=== PATIENT | male | born 1945 | race Two or more races ===

== ENCOUNTER 2022-05-13 07:37 | Inpatient (IN) | payer OTHER ==
[~2022-05-13] VITALS: Ht 188 cm; Wt 106.8 kg
[~2022-05-13 07:37] MED LIST: FINA1TAB10 OR; LISI-275 PO; SIMV10TA84 PO; TAM04C PO; WARF5TAB71 PO
[2022-05-13] MEDS ORDERED: ACETAMINOPHEN IV 1000 MG/100ML (10MG/ML) IV ONE (07:45)
[2022-05-13] MEDS ORDERED: PREGABALIN CAPSULE 75 MG CAP PO ONE (07:45)
[2022-05-13] MEDS ORDERED: ceFAZolin 1GM/50ML 100 ML IV ONE (07:48)
[2022-05-13] MEDS ORDERED: ACETAMINOPHEN IV 100 ML IV ONE (07:48)
[2022-05-13 08:55] LABS: INR 1.13 (0.9-1.15); Partial Thromboplastin Time 31.3 sec (24.6-33.4)
[2022-05-13] MEDS ORDERED: BUPIVACAINE 0.25% INJ 50ML VIAL ONE ×2 (10:23→10:28)
[2022-05-13] MEDS ORDERED: TRANEXAMIC ACID 10 ML ONE ×2 (10:25→10:28)
[2022-05-13] MEDS ORDERED: KETOROLAC TROMETH 60MG/2ML VIAL ONE (10:26)
[2022-05-13] MEDS ORDERED: KETOROLAC TROMETH 30 MG/ML 1ML VIAL ONE ×2 (10:26→11:43)
[2022-05-13] MEDS ORDERED: MORPHINE SULF PF 5 MG/10 ML VIAL ONE (10:26)
[2022-05-13] MEDS ORDERED: VANCOMYCIN HCL 1000 MG VL ONE (10:27)
[2022-05-13] MEDS ORDERED: ONDANSETRON HCL 4 MG/2 ML VIAL ONE (11:42)
[2022-05-13] MEDS ORDERED: LIDOCAINE 1% (LOCAL ANESTH.) PF 5ml SDV ONE (11:42)
[2022-05-13] MEDS ORDERED: GLYCOPYRROLATE 0.2 MG/ML 1ML VIAL ONE (11:42)
[2022-05-13] MEDS ORDERED: DexAMETHasone SOD PHOS 10MG/1ML VIAL INJ ONE (11:43)
[2022-05-13] MEDS ORDERED: PROPOFOL 10 MG/ML 20 ML IV ONE (11:43)
[2022-05-13] MEDS ORDERED: HYDROmorphone HCL 2 MG/ML VL/or syr IV PRN (12:30)
[2022-05-13] MEDS: ceFAZolin 1GM/50ML 50 ML IV SCH ×2 (12:30→18:38)
[2022-05-13] MEDS ORDERED: ACETAMINOPHEN 325 MG TAB PO PRN (12:30)
[2022-05-13] MEDS ORDERED: BISACODYL 5 MG EC TAB PO PRN (12:30)
[2022-05-13] MEDS ORDERED: ONDANSETRON HCL 4 MG/2 ML VIAL IV PRN (12:30)
[2022-05-13] MEDS ORDERED: LACTATED RINGER'S 1,000 ML IV SCH (12:30)
[2022-05-13] MEDS ORDERED: NITROGLYCERIN 0.4 MG SL TAB SL PRN (12:30)
[2022-05-13] MEDS ORDERED: OXYCODONE W/ ACETAMINOPHEN 5/325MG TABLET PO PRN (12:30)
[2022-05-13] MEDS ORDERED: MORPHINE SULFATE INJ 2 MG/ml SYRG IV PRN (12:30)
[2022-05-13 16:30] VITALS: BP 116/86
[2022-05-13] MEDS: SODIUM CHLOR 0.9% PF (SALINE LOCK) 10ML VIAL/SYR IV SCH ×2 (16:33→22:52)
[2022-05-13 16:35] VITALS: BP 116/86
[2022-05-13 16:49] VITALS: BP 116/86
[2022-05-13] MEDS ORDERED: WARFARIN SODIUM 5 MG TAB PO ONE (18:15)
[2022-05-13 20:00] VITALS: BP 122/57
[2022-05-13] MEDS: PRAVASTATIN SODIUM 20 MG TAB PO SCH (21:57)
[2022-05-13] MEDS: DOCUSATE SOD 100 MG CAP PO SCH (21:58)
[2022-05-13 22:00] VITALS: BP 122/57
[2022-05-14] MEDS: ceFAZolin 1GM/50ML 50 ML IV SCH (00:57)
[2022-05-14 05:00] VITALS: BP 111/65
[2022-05-14] MEDS: SODIUM CHLOR 0.9% PF (SALINE LOCK) 10ML VIAL/SYR IV SCH ×3 (06:08→22:13)
[2022-05-14 06:53] LABS: Basophils # (auto) 0 10 ^3/uL (0-0.2); Eosinophils # (auto) 0 10 ^3/uL (0-0.8); Hematocrit 38.3 % (41.0-53.0); Lymphocytes # (auto) 0.7 10 ^3/uL (0.4-5.4); Lymphocytes % (auto) 5.1 % (10.0-50.0); Mean Corpuscular Hemoglobin 32.4 pg (28.0-32.0); Mean Corpuscular Hgb Conc. 33.9 g/dL (32.0-36.0); Mean Corpuscular Volume 95.7 fL (80.0-100.0); Monocytes # (auto) 0.8 10 ^3/uL (0-1.3); Monocytes % (auto) 5.7 % (0.0-12.0); Neutrophils % (auto) 89.2 % (37.0-80.0); Red Blood Cells 4.01 10^6/uL (4.5-5.90); Red Cell Distribution Width 13.3 % (11.8-14.3); White Blood Cell 13.5 10^3/uL (4.4-10.8)
[2022-05-14 07:12] LABS: INR 1.09 (0.9-1.15)
[2022-05-14 07:13] LABS: Albumin 2.8 g/dL (3.4-5.0); BUN/Creatinine Ratio 15.4; Calcium 8.2 mg/dL (8.5-10.1)
[2022-05-14 07:16] LABS: Bilirubin, Total 0.7 mg/dL (0.2-1.0); Total Protein 5.3 g/dL (6.4-8.2)
[2022-05-14 09:00] VITALS: BP 118/81
[2022-05-14] MEDS: TAMSULOSIN HYDROCHLORIDE 0.4 MG CAP PO SCH (09:13)
[2022-05-14] MEDS: DOCUSATE SOD 100 MG CAP PO SCH ×2 (09:13→22:03)
[2022-05-14] MEDS: LISINOPRIL 5 MG TAB PO SCH (09:14)
[2022-05-14] MEDS ORDERED: WARFARIN SODIUM 5 MG TAB PO SCH (10:00)
[2022-05-14 13:00] VITALS: BP 128/79
[2022-05-14] MEDS ORDERED: WARFARIN SODIUM 5 MG TAB PO ONE (17:00)
[2022-05-14 17:10] VITALS: BP 115/69
[2022-05-14 20:00] VITALS: BP 99/55
[2022-05-14 22:00] VITALS: BP_SYST 99; BP_DIAS 55; BP_DIAS 65
[2022-05-14] MEDS: PRAVASTATIN SODIUM 20 MG TAB PO SCH (22:03)
[2022-05-15 05:00] VITALS: BP 118/70
[2022-05-15 05:55] LABS: INR 1.22 (0.9-1.15)
[2022-05-15 06:19] LABS: Hematocrit 36.7 % (41.0-53.0)
[2022-05-15] MEDS: SODIUM CHLOR 0.9% PF (SALINE LOCK) 10ML VIAL/SYR IV SCH ×2 (06:19→13:25)
[2022-05-15 09:00] VITALS: BP 123/73
[2022-05-15] MEDS: LISINOPRIL 5 MG TAB PO SCH (09:36)
[2022-05-15] MEDS: DOCUSATE SOD 100 MG CAP PO SCH (09:36)
[2022-05-15] MEDS: TAMSULOSIN HYDROCHLORIDE 0.4 MG CAP PO SCH (09:36)
[2022-05-15 13:00] VITALS: BP 137/84
[2022-05-15 17:00] VITALS: BP 135/78
[2022-05-15] MEDS ORDERED: WARFARIN SODIUM 5 MG TAB PO ONE (17:00)
== END 2022-05-15 21:02 | disposition home or self-care (01) | DRG 470 ==
LOC: SUR 07:37 → OVERFLOW 12:25 → EAST 12:26 → TELE-EAST 16:23 → EAST 16:53
PROVIDERS: ADMIT Orthopaedic Surgery Adult Reconstructive Orthopaedic Surgery; ATTEND Orthopaedic Surgery Adult Reconstructive Orthopaedic Surgery
PROC: 8E0YXBZ Computer Assisted Procedure of Lower Extremity (ICD-10-PCS; 2022-05-13)
PROC: 0SRC0J9 Replacement of Right Knee Joint with Synthetic Substitute, Cemented, Open Approach (ICD-10-PCS; principal; 2022-05-13 11:47)
DX: M17.11 Unilateral primary osteoarthritis, right knee (principal); Z20.822 Contact with and (suspected) exposure to COVID-19
CPT/HCPCS: 36415; 73562; 80053; 85014; 85018; 85025; 85610; 85730; 86850; 86900; 86901; G0378; J0131; J0690; J1100; J1885; J2405; J2704; J3490